=== PATIENT | male | born 1955 | race Caucasian/White ===

== ENCOUNTER → 2017-08-07 | Outpatient (CLI) | payer OTHER ==
[2017-08-07 07:18] LABS: CHOLESTEROL 158 mg/dL (<200); HDL CHOLESTEROL 31 mg/dL (>40); LDL CHOLESTEROL 77 mg/dL (<100); TC:HDL 5.1 Ratio (Not establshd); TRIGLYCERIDE 253 mg/dL (<150); VLDL 51 mg/dL (<40)
[2017-08-07 07:30] LABS: SERUM ASSESSMENT Clear
== END ==
LOC: M.LAB 06:46
PROVIDERS: Nurse Practitioner Family
DX: E78.2 Mixed hyperlipidemia (principal)

== ENCOUNTER 2020-07-02 02:58 | Emergency (ER) | payer MEDICARE ==
[~2020-07-02] VITALS: Ht 170.2 cm; Wt 85.7 kg
[2020-07-02] MEDS ORDERED: VASCEPA1 GM PO (03:08)
[2020-07-02] MEDS ORDERED: DILTIAZEM ER180 M2 PO (03:08)
[2020-07-02] MEDS ORDERED: JANTOVEN2 MG PO (03:09)
[2020-07-02] MEDS ORDERED: LISINOPRIL10 MG PO (03:09)
[2020-07-02] MEDS ORDERED: FENOFIBRATE150 MG PO (03:09)
[2020-07-02] MEDS ORDERED: EZALLOR SPRINKLE5 MG PO (03:09)
[2020-07-02] MEDS ORDERED: KAPSPARGO SPRI100 MG PO (03:10)
[2020-07-02 04:02] LABS: INFLUENZA A ANTIGEN Negative (Negative); INFLUENZA B ANTIGEN Negative (Negative)
[2020-07-02] MEDS ORDERED: KEFLEX500 M1 PO (04:25)
[2020-07-02] MEDS ORDERED: GI Cocktail SWISH&SPIT (04:25)
[2020-07-02 04:37] VITALS: BP 166/113
== END 2020-07-02 04:37 | disposition home or self-care (01) ==
LOC: M.ERS 02:58
PROVIDERS: Personal Emergency Response Attendant
DX: J06.9 Acute upper respiratory infection, unspecified (principal); Z20.822 Contact with and (suspected) exposure to COVID-19; I48.91 Unspecified atrial fibrillation; I10 Essential (primary) hypertension; E78.00 Pure hypercholesterolemia, unspecified; Z88.0 Allergy status to penicillin